=== PATIENT | male | born 1970 | race African-American/Black ===

== ENCOUNTER 2019-04-01 10:59 | Inpatient (IN) | payer MEDICAID ==
[~2019-04-01] VITALS: Ht 185.4 cm; Wt 78.0 kg
[2019-04-01] MEDS ORDERED: ONDANSETRON HCL 4MG/2ML INJ IV STA (11:38)
[2019-04-01] MEDS ORDERED: SODIUM CHLORIDE 0.9% 1,000 ML IV ONE (11:38)
[2019-04-01] MEDS ORDERED: MORPHINE SULFATE 4 MG/ML CPJ (NOT FOR IM USE) IV STA (11:38)
[2019-04-01 12:31] LABS: BASOPHILS % 0.1 % (0.0-2.0); HEMATOCRIT. 31.2 % (42.0-52.0); HEMOGLOBIN. 10.6 g/dL (14.0-18.0); MEAN CORPUSCULAR HEMOGLOBIN 28.4 pg (28.0-32.0); MEAN CORPUSCULAR VOLUME 83.7 fL (80.0-94.0); MONOCYTES % 2.1 % (2.0-8.0); NEUTROPHILS % 89.8 % (40.0-76.0); PLATELET 91 x1000/uL (130-400); RED BLOOD CELL COUNT 3.73 mill/uL (4.7-6.1)
[2019-04-01 12:38] LABS: CHLORIDE 107 mEq/L (98-107)
[2019-04-01 12:45] LABS: D-DIMER 1.97 mg/L FEU (<0.50); INR 1.1; PROTHROMBIN TIME 11.7 sec (9.6-11.0)
[2019-04-01] MEDS ORDERED: KETOROLAC 30MG/ML VIAL IV ONE (12:45)
[2019-04-01] MEDS ORDERED: MORPHINE SULFATE 4 MG/ML CPJ (NOT FOR IM USE) IV ONE (12:45)
[2019-04-01] MEDS ORDERED: SODIUM CHLORIDE 0.9% 1000ML BAG (SEPSIS BOLUS) IV ONE (13:00)
[2019-04-01] MEDS ORDERED: PIPERACILLIN/TAZ 3.375G PREMIX 50 ML IV ONE (13:00)
[2019-04-01] MEDS ORDERED: VANCOMYCIN 1 G PREMIX 200 ML IV ONE (13:00)
[2019-04-01] MEDS ORDERED: LORAZEPAM 2MG/ML CPJ IV ONE (13:30)
[2019-04-01] MEDS ORDERED: SODIUM CHLORIDE 0.9% 1,000 ML IV NR ×2 (15:03→20:45)
[2019-04-01 18:20] VITALS: BP 91/41
[2019-04-01 18:27] LABS: CLARITY URINE CLOUDY (CLEAR); COLOR URINE YELLOW (YELLOW); KETONES URINE TRACE (NEGATIVE); LEUKOCYTE ESTERASE URINE NEGATIVE (NEGATIVE); NITRITE URINE NEGATIVE (NEGATIVE); OCCULT BLOOD URINE 1+ (NEGATIVE); PROTEIN URINE 1+ (NEGATIVE)
[2019-04-01 18:36] LABS: *BARBITURATES SCREEN URINE NEGATIVE (NEGATIVE)
[2019-04-01 18:37] LABS: *AMPHETAMINES SCREEN URINE NEGATIVE (NEGATIVE); *BENZODIAZEPINES SCREEN URINE NEGATIVE (NEGATIVE); *COCAINE SCREEN URINE PRESUMTIVE POSITIVE (NEGATIVE); METHADONE URINE SCREEN NEGATIVE (NEGATIVE); OPIATES URINE SCREEN PRESUMTIVE POSITIVE (NEGATIVE); PHENCYCLIDINE URINE SCREEN NEGATIVE (NEGATIVE)
[2019-04-01 18:38] LABS: CANNABINOID URINE SCREEN PRESUMTIVE POSITIVE (NEGATIVE)
[2019-04-01] MEDS ORDERED: GUAIFENESIN 200MG/10ML SUGAR FREE UDC PO PRN (18:45)
[2019-04-01] MEDS ORDERED: ONDANSETRON HCL 4MG/2ML INJ IV PRN (18:45)
[2019-04-01] MEDS ORDERED: SODIUM CHLORIDE 0.45% 1,000 ML IV SCH (18:45)
[2019-04-01] MEDS ORDERED: PIPERACILLIN/TAZ 3.375G PREMIX 50 ML IV SCH (18:45)
[2019-04-01] MEDS ORDERED: IPRATROPIUM/ALBUTEROL 0.5-3(2.5)MG/3ML NEB INH PRN (18:45)
[2019-04-01] MEDS ORDERED: DOCUSATE SODIUM 100MG CAPSULE PO PRN (18:45)
[2019-04-01] MEDS ORDERED: ENOXAPARIN 40MG/0.4ML SYR SUBCUT SCH (18:45)
[2019-04-01] MEDS ORDERED: ACETAMINOPHEN 325MG TABLET PO PRN (18:45)
[2019-04-01] MEDS ORDERED: MAGNESIUM/ALUMINUM HYDROXIDE/SIMETHICONE 30ML UDC PO PRN (18:45)
[2019-04-01] MEDS ORDERED: CLONIDINE 0.1MG TABLET PO PRN (18:45)
[2019-04-01] MEDS ORDERED: DIPHENHYDRAMINE 50MG/ML VIAL IV PRN (18:45)
[2019-04-01] MEDS ORDERED: HYDROCODONE/ACETAMINOPHEN 10/325MG TABLET PO PRN (18:45)
[2019-04-01] MEDS ORDERED: HYDRALAZINE 20MG/ML VIAL IV PRN (18:45)
[2019-04-01 20:00] VITALS: BP 73/32
[2019-04-01] MEDS ORDERED: POTASSIUM CHLORIDE 20MEQ TABLET SR PO NR (20:00)
[2019-04-01 21:00] VITALS: BP 76/34
[2019-04-01] MEDS: PIPERACILLIN/TAZOBACTAM 3.375 G in DEXT 5% WATER 100 ML IV SCH (21:27)
[2019-04-01] MEDS: SODIUM CHLORIDE 0.9% INJ 3ML FLUSH IVF SCH (21:28)
[2019-04-01 21:30] VITALS: BP 80/36
[2019-04-01] MEDS ORDERED: SODIUM CHLORIDE 0.9% 1,000 ML IV SCH (21:45)
[2019-04-02] VITALS (75 sets, daily range): BP systolic 66–144; BP diastolic 20–95
[2019-04-02] MEDS: VANCOMYCIN 1 G PREMIX 200 ML IV SCH ×2 (00:23→12:33)
[2019-04-02] MEDS ORDERED: IBUP1TAB69 PO (00:48)
[2019-04-02 01:40] LABS: CREATINE KINASE MB FRACTION 2.2 ng/mL (0.5-3.6)
[2019-04-02] MEDS ORDERED: NOREPINEPHRINE 4 MG in DEXTROSE 5% WATER 250 ML IV PRN (05:00)
[2019-04-02] MEDS ORDERED: NOREPINEPHRINE 4MG in DEXT 5% WATER 250ML IV PRN (06:15)
[2019-04-02] MEDS ORDERED: NOREPINEPHRINE 4 MG in DEXT 5% WATER 246 ML IV PRN (06:15)
[2019-04-02] MEDS: SODIUM CHLORIDE 0.9% INJ 3ML FLUSH IVF SCH ×3 (06:45→21:54)
[2019-04-02] MEDS: PIPERACILLIN/TAZOBACTAM 3.375 G in DEXT 5% WATER 100 ML IV SCH ×2 (06:45→15:03)
[2019-04-02] MEDS ORDERED: NOREPINEPHRINE 8 MG in DEXT 5% WATER 492 ML IV PRN (08:30)
[2019-04-02 08:33] LABS: HEMATOCRIT. 34.4 % (42.0-52.0); HEMOGLOBIN. 11.4 g/dL (14.0-18.0); MEAN CORPUSCULAR HEMOGLOBIN 28.3 pg (28.0-32.0); MEAN CORPUSCULAR VOLUME 85.5 fL (80.0-94.0); MEAN PLATELET VOLUME 8.9 fl (7.4-10.4); PLATELET 78 x1000/uL (130-400); RED BLOOD CELL COUNT 4.02 mill/uL (4.7-6.1); RED CELL DISTRIBUTION WIDTH 15.5 % (11.6-14.6)
[2019-04-02 08:38] LABS: CHLORIDE 109 mEq/L (98-107)
[2019-04-02 08:47] LABS: CREATINE KINASE 455 IU/L (39-308)
[2019-04-02 08:54] LABS: CREATINE KINASE MB FRACTION 6.7 ng/mL (0.5-3.6)
[2019-04-02] MEDS ORDERED: LIDOCAINE HCL 1% 20ML VIAL (Pyxis) INJ ONE (09:16)
[2019-04-02] MEDS ORDERED: SODIUM BICARBONATE 8.4% 1 MEQ/ML 50ML SYR IV NR (11:07)
[2019-04-02] MEDS: NOREPINEPHRINE 16 MG in DEXT 5% WATER 484 ML IV PRN (11:30)
[2019-04-02 11:35] LABS: PLATELET ESTIMATE DECREASED
[2019-04-02 12:01] LABS: BG BASE EXCESS -9.3 mmol/L (-2.0-2.0); BG CARBOXYHEMOGLOBIN 0.3 % (0.5-1.5); BG DEOXYHEMOGLOBIN 3.7 % (0.0-5.0); BG FRACTION INSPIRED OXYGEN 32; BG HCO3 ACT 13.4 mmol/L (22.0-26.0); BG METHEMOGLOBIN 0.1 % (0.0-1.5); BG OXYGEN SATURATION 96.3 % (92.0-98.5); BG OXYHEMOGLOBIN 95.9 % (94.0-97.0); BG PH 7.422 (7.350-7.450); BG PO2 86.8 mmHg (75.0-100.0); BG SAMPLE SITE LEFT BRACHIAL; BG TOTAL HEMOGLOBIN 10.4 g/dL (12.0-18.0); BG VENT MODE NASAL CANNULA
[2019-04-02] MEDS: SODIUM BICARBONATE 100 MEQ in SODIUM CHLORIDE 0.45% 1,000 ML IV SCH ×2 (12:31→21:53)
[2019-04-02] MEDS: MORPHINE SULFATE 2 MG/ML CPJ (NOT FOR IM USE) IV PRN ×2 (12:34→17:43)
[2019-04-02] MEDS: LORAZEPAM 2MG/ML CPJ IV PRN (15:03)
[2019-04-02] MEDS: IPRATROPIUM/ALBUTEROL 0.5-3(2.5)MG/3ML NEB HHN SCH (21:45)
[2019-04-02] MEDS: PIPERACILLIN/TAZOBACTAM 2.25 G in DEXTROSE 5% WATER 50 ML IV SCH (21:53)
[2019-04-03] VITALS (85 sets, daily range): BP systolic 92–191; BP diastolic 26–123
[2019-04-03] MEDS: LORAZEPAM 2MG/ML CPJ IV PRN ×2 (01:31→10:11)
[2019-04-03] MEDS: IPRATROPIUM/ALBUTEROL 0.5-3(2.5)MG/3ML NEB HHN SCH ×3 (02:00→21:36)
[2019-04-03] MEDS: PHENYLEPHRINE 20 MG in DEXT 5% WATER 248 ML IV PRN ×2 (03:06→07:37)
[2019-04-03] MEDS: NOREPINEPHRINE 16 MG in DEXT 5% WATER 484 ML IV PRN ×2 (03:07→15:02)
[2019-04-03] MEDS: PIPERACILLIN/TAZOBACTAM 2.25 G in DEXTROSE 5% WATER 50 ML IV SCH (03:18)
[2019-04-03 05:18] LABS: HEMATOCRIT. 31.3 % (42.0-52.0); HEMOGLOBIN. 10.4 g/dL (14.0-18.0); MEAN CORPUSCULAR HEMOGLOBIN 27.7 pg (28.0-32.0); MEAN CORPUSCULAR VOLUME 83.6 fL (80.0-94.0); MEAN PLATELET VOLUME 9.7 fl (7.4-10.4); PLATELET 68 x1000/uL (130-400); RED BLOOD CELL COUNT 3.74 mill/uL (4.7-6.1); RED CELL DISTRIBUTION WIDTH 15.4 % (11.6-14.6)
[2019-04-03] MEDS: SODIUM CHLORIDE 0.9% INJ 3ML FLUSH IVF SCH ×3 (06:00→21:53)
[2019-04-03] MEDS: SODIUM BICARBONATE 100 MEQ in SODIUM CHLORIDE 0.45% 1,000 ML IV SCH (07:41)
[2019-04-03 07:44] LABS: BG BASE EXCESS -4.7 mmol/L (-2.0-2.0); BG CARBOXYHEMOGLOBIN 0.3 % (0.5-1.5); BG DEOXYHEMOGLOBIN 5.8 % (0.0-5.0); BG HCO3 ACT 17.1 mmol/L (22.0-26.0); BG METHEMOGLOBIN 0.1 % (0.0-1.5); BG OXYGEN SATURATION 94.2 % (92.0-98.5); BG OXYHEMOGLOBIN 93.8 % (94.0-97.0); BG PCO2 22.7 mmHg (35.0-45.0); BG PH 7.495 (7.350-7.450); BG PO2 70.2 mmHg (75.0-100.0); BG SAMPLE SITE RIGHT BRACHIAL; BG TOTAL HEMOGLOBIN 10.5 g/dL (12.0-18.0); BG VENT MODE NASAL CANNULA
[2019-04-03] MEDS: MORPHINE SULFATE 2 MG/ML CPJ (NOT FOR IM USE) IV PRN ×2 (08:35→14:57)
[2019-04-03] MEDS ORDERED: PIPERACILLIN/TAZOBACTAM 3.375 G in DEXT 5% WATER 100 ML IV SCH (09:00)
[2019-04-03 11:04] LABS: PLATELET ESTIMATE DECREASED
[2019-04-03 11:36] LABS: HEPATITIS B SURFACE ANTIGEN NEGATIVE
[2019-04-03] MEDS ORDERED: CLINDAMYCIN 600 MG in DEXTROSE 5% WATER 50 ML IV SCH (14:30)
[2019-04-03] MEDS: CLINDAMYCIN 600MG PREMIX 50 ML IV SCH (15:29)
[2019-04-03] MEDS ORDERED: VANCOMYCIN 1 G PREMIX 200 ML IV SCH (15:30)
[2019-04-03] MEDS: PIPERACILLIN/TAZOBACTAM 3.375 G in DEXT 5% WATER 100 ML IV SCH (15:52)
[2019-04-03 16:07] LABS: BG BASE EXCESS -3.1 mmol/L (-2.0-2.0); BG CARBOXYHEMOGLOBIN 0.3 % (0.5-1.5); BG DEOXYHEMOGLOBIN 6.1 % (0.0-5.0); BG FRACTION INSPIRED OXYGEN 32; BG HCO3 ACT 19.5 mmol/L (22.0-26.0); BG METHEMOGLOBIN 0.2 % (0.0-1.5); BG OXYGEN SATURATION 93.9 % (92.0-98.5); BG OXYHEMOGLOBIN 93.4 % (94.0-97.0); BG PCO2 27.1 mmHg (35.0-45.0); BG PH 7.475 (7.350-7.450); BG PO2 73.9 mmHg (75.0-100.0); BG SAMPLE SITE LEFT RADIAL; BG TOTAL HEMOGLOBIN 10.3 g/dL (12.0-18.0); BG VENT MODE NASAL CANNULA
[2019-04-03] MEDS: FAMOTIDINE 20MG/2ML VIAL IV SCH (18:54)
[2019-04-03] MEDS: BUDESONIDE 0.5MG/2ML NEB HHN SCH (21:35)
[2019-04-04] VITALS (92 sets, daily range): BP systolic 48–226; BP diastolic 25–135
[2019-04-04] MEDS: PIPERACILLIN/TAZOBACTAM 3.375 G in DEXT 5% WATER 100 ML IV SCH ×2 (00:36→08:04)
[2019-04-04] MEDS: CLINDAMYCIN 600MG PREMIX 50 ML IV SCH ×3 (00:36→16:41)
[2019-04-04] MEDS: IPRATROPIUM/ALBUTEROL 0.5-3(2.5)MG/3ML NEB HHN SCH ×3 (01:55→20:42)
[2019-04-04] MEDS: NOREPINEPHRINE 16 MG in DEXT 5% WATER 484 ML IV PRN (02:01)
[2019-04-04] MEDS: SODIUM CHLORIDE 0.9% INJ 3ML FLUSH IVF SCH ×3 (06:33→22:00)
[2019-04-04 06:41] LABS: HEMATOCRIT. 29.2 % (42.0-52.0); HEMOGLOBIN. 9.8 g/dL (14.0-18.0); MEAN CORPUSCULAR VOLUME 83.3 fL (80.0-94.0); RED BLOOD CELL COUNT 3.51 mill/uL (4.7-6.1); RED CELL DISTRIBUTION WIDTH 14.6 % (11.6-14.6)
[2019-04-04 07:06] LABS: PLATELET 49 x1000/uL (130-400)
[2019-04-04 07:07] LABS: PHOSPHORUS 1.5 mg/dL (2.5-4.9)
[2019-04-04] MEDS: SODIUM BICARBONATE 100 MEQ in SODIUM CHLORIDE 0.45% 1,000 ML IV SCH (08:15)
[2019-04-04 09:09] LABS: ABSOLUTE LYMPHOCYTES 1.6 x10E3/uL (0.7-3.1); ABSOLUTE MONOCYTES 1.6 x10E3/uL (0.1-0.9); ABSOLUTE NEUTROPHILS 33.2 x10E3/uL (1.4-7.0); BASOPHILS 0 % (Not Estab.); HEMATOLOGY COMMENT Note: (.); HEMOGLOBIN 9.9 g/dL (13.0-17.7); LYMPHOCYTES 4 % (Not Estab.); MEAN CORPUSCULAR HEMOGLOBIN 26.9 pg (26.6-33.0); MEAN CORPUSCULAR HGB CONC. 31.9 g/dL (31.5-35.7); MEAN CORPUSCULAR VOLUME 84 fL (79-97); MONOCYTES 4 % (Not Estab.); NEUTROPHILS 47 % (Not Estab.); PLATELETS 74 x10E3/uL (150-450); RBC 3.68 x10E6/uL (4.14-5.80); RED CELL DISTRIBUTION WIDTH 16.3 % (12.3-15.4); WBC 40.5 x10E3/uL (3.4-10.8)
[2019-04-04 11:28] LABS: CHLORIDE 106 mEq/L (98-107)
[2019-04-04] MEDS ORDERED: MAGNESIUM 2 G PREMIX 50 ML IV SCH (12:00)
[2019-04-04] MEDS ORDERED: CEFTRIAXONE 2 G PREMIX 50 ML IV SCH (12:15)
[2019-04-04 13:15] LABS: % CD 3 POS. LYMPHOCYTES 79.7 % (57.5-86.2); % CD 4 POS. LYMPHOCYTES 4.4 % (30.8-58.5); ABSOLUTE CD 3 1275 /uL (622-2402); ABSOLUTE CD 4 HELPER 70 /uL (359-1519); ABSOLUTE CD 8 SUPPRESSOR 1200 /uL (109-897); CD4/CD8 RATIO 0.06 (0.92-3.72)
[2019-04-04] MEDS: BUDESONIDE 0.5MG/2ML NEB HHN SCH ×2 (13:35→20:42)
[2019-04-04] MEDS: CEFTRIAXONE 2 G in DEXTROSE 5% WATER 50 ML IV SCH (13:50)
[2019-04-04] MEDS ORDERED: POTASSIUM PHOS,M-BASIC-D-BASIC 20 MMOL in DEXT 5% WATER 243.3333 ML IV SCH (14:00)
[2019-04-04 14:18] LABS: PLATELET ESTIMATE MARKEDLY DECREASED
[2019-04-04] MEDS: FAMOTIDINE 20MG/2ML VIAL IV SCH (16:43)
[2019-04-04] MEDS: MORPHINE SULFATE 4 MG/ML CPJ (NOT FOR IM USE) IV PRN (22:08)
[2019-04-05] VITALS (87 sets, daily range): BP systolic 27–152; BP diastolic 13–92
[2019-04-05] MEDS: IPRATROPIUM/ALBUTEROL 0.5-3(2.5)MG/3ML NEB HHN SCH ×4 (00:39→20:32)
[2019-04-05] MEDS: CLINDAMYCIN 600MG PREMIX 50 ML IV SCH ×3 (04:02→16:40)
[2019-04-05 05:50] LABS: HEMATOCRIT. 25.5 % (42.0-52.0); HEMOGLOBIN. 8.7 g/dL (14.0-18.0); MEAN CORPUSCULAR VOLUME 82.6 fL (80.0-94.0); RED BLOOD CELL COUNT 3.09 mill/uL (4.7-6.1); RED CELL DISTRIBUTION WIDTH 14.7 % (11.6-14.6)
[2019-04-05 06:02] LABS: CHLORIDE 105 mEq/L (98-107)
[2019-04-05 06:07] LABS: PHOSPHORUS 1.8 mg/dL (2.5-4.9)
[2019-04-05 06:24] LABS: PLATELET 45 x1000/uL (130-400)
[2019-04-05] MEDS: SODIUM CHLORIDE 0.9% INJ 3ML FLUSH IVF SCH ×3 (08:29→22:00)
[2019-04-05] MEDS: NOREPINEPHRINE 16 MG in DEXT 5% WATER 484 ML IV PRN (08:29)
[2019-04-05] MEDS ORDERED: POTASSIUM CHLORIDE INJ 40 MEQ in DEXT 5% WATER 250 ML IV NR (09:00)
[2019-04-05] MEDS: BUDESONIDE 0.5MG/2ML NEB HHN SCH ×2 (09:31→20:32)
[2019-04-05] MEDS ORDERED: POTASSIUM PHOS,M-BASIC-D-BASIC 20 MMOL in DEXT 5% WATER 243.3333 ML IV NR (13:00)
[2019-04-05 13:22] LABS: PLATELET ESTIMATE MARKEDLY DECREASED
[2019-04-05] MEDS: CEFTRIAXONE 2 G in DEXTROSE 5% WATER 50 ML IV SCH (14:59)
[2019-04-05] MEDS: SULFAMETHOXAZOLE/TRIMETHOPRIM 800/160MG TABLET PO SCH ×2 (16:40→22:00)
[2019-04-05] MEDS: FAMOTIDINE 20MG/2ML VIAL IV SCH (16:42)
[2019-04-05] MEDS: MORPHINE SULFATE 4 MG/ML CPJ (NOT FOR IM USE) IV PRN (20:19)
[2019-04-06] VITALS (14 sets, daily range): BP systolic 100–131; BP diastolic 59–86
[2019-04-06] MEDS: IPRATROPIUM/ALBUTEROL 0.5-3(2.5)MG/3ML NEB HHN SCH ×2 (01:45→07:05)
[2019-04-06] MEDS ORDERED: POTASSIUM CHLORIDE INJ 60 MEQ in DEXT 5% WATER 470 ML IV SCH (02:00)
[2019-04-06] MEDS: SODIUM CHLORIDE 0.9% INJ 3ML FLUSH IVF SCH (06:00)
[2019-04-06 06:04] LABS: HEMOGLOBIN. 8.8 g/dL (14.0-18.0); MEAN CORPUSCULAR HEMOGLOBIN 27.7 pg (28.0-32.0); MEAN PLATELET VOLUME 10.2 fl (7.4-10.4); PLATELET 58 x1000/uL (130-400); RED BLOOD CELL COUNT 3.17 mill/uL (4.7-6.1); RED CELL DISTRIBUTION WIDTH 14.5 % (11.6-14.6)
[2019-04-06 06:09] LABS: CHLORIDE 106 mEq/L (98-107)
[2019-04-06 06:14] LABS: PHOSPHORUS 2.8 mg/dL (2.5-4.9)
[2019-04-06] MEDS: BUDESONIDE 0.5MG/2ML NEB HHN SCH (07:05)
[2019-04-06] MEDS ORDERED: POTASSIUM CHLORIDE 20MEQ TABLET SR PO NR (08:15)
[2019-04-06] MEDS: SULFAMETHOXAZOLE/TRIMETHOPRIM 800/160MG TABLET PO SCH (08:23)
[2019-04-06] MEDS: CLINDAMYCIN 600MG PREMIX 50 ML IV SCH ×2 (08:23)
[2019-04-06 13:35] LABS: NUCLEATED RED BLOOD CELLS 1 /100 WBC; PLATELET ESTIMATE MARKEDLY DECREASED
== END 2019-04-06 08:45 | disposition left against medical advice (07) | DRG 890 ==
LOC: ER 10:59 → EDBD 10:59 → 6WST 13:30 → EDBEDREQTM 13:36 → ENRESERV 17:25 → 6WST 19:25 → MICUNO 04-02 02:35
PROVIDERS: ADMIT Internal Medicine; ATTEND Internal Medicine
PROC: 02HV33Z Insertion of Infusion Device into Superior Vena Cava, Percutaneous Approach (ICD-10-PCS; principal; 2019-04-02)
PROC: B548ZZA Ultrasonography of Superior Vena Cava, Guidance (ICD-10-PCS; 2019-04-02)
DX: A41.81 Sepsis due to Enterococcus (principal); B20 Human immunodeficiency virus [HIV] disease; J96.00 Acute respiratory failure, unspecified whether with hypoxia or hypercapnia; I21.4 Non-ST elevation (NSTEMI) myocardial infarction; E43 Unspecified severe protein-calorie malnutrition; N17.0 Acute kidney failure with tubular necrosis; J18.1 Lobar pneumonia, unspecified organism; L03.115 Cellulitis of right lower limb; E83.39 Other disorders of phosphorus metabolism; E87.2 Acidosis; R65.21 Severe sepsis with septic shock; E87.6 Hypokalemia; G62.9 Polyneuropathy, unspecified; N18.9 Chronic kidney disease, unspecified; C46.9 Kaposi's sarcoma, unspecified; E87.1 Hypo-osmolality and hyponatremia; F14.10 Cocaine abuse, uncomplicated; I73.9 Peripheral vascular disease, unspecified; Z92.3 Personal history of irradiation; M54.30 Sciatica, unspecified side; E46 Unspecified protein-calorie malnutrition; F11.10 Opioid abuse, uncomplicated; F12.10 Cannabis abuse, uncomplicated; Z71.6 Tobacco abuse counseling; Z87.311 Personal history of (healed) other pathological fracture; Z68.22 Body mass index [BMI] 22.0-22.9, adult
CPT/HCPCS: 36415; 36600; 71045; 71250; 73630; 74018; 76770; 76937; 80048; 80202; 80305; 81003; 82375; 82533; 82550; 82553; 82805; 83605; 83615; 83735; 83880; 84100; 84132; 84443; 84484; 85379; 86359; 86360; 86803; 87077; 87177; 87186; 87209; 87340; 87493; 93306; 93923; 93970; 94640; 99285; C1725; J0696; J1885; J2060; J2270; J2370; J2405; J2543; J3370; J3475; J3480; J3490; J7030; J7060; J7620; J7626

== ENCOUNTER 2022-07-28 17:52 | Emergency (ER) | payer MEDICAID ==
[~2022-07-28] VITALS: Ht 175.3 cm; Wt 78.0 kg
[~2022-07-28 17:52] MED LIST: IBUP1TAB69 PO
[2022-07-28] MEDS ORDERED: AMIT25TA9 PO (18:38)
[2022-07-28] MEDS ORDERED: GABA-532 PO (18:39)
[2022-07-28] MEDS ORDERED: DULO60CA64 PO (18:39)
[2022-07-28] MEDS ORDERED: DAPS100T PO (18:39)
[2022-07-28] MEDS ORDERED: BICT1TAB PO (18:40)
[2022-07-28] MEDS ORDERED: IBUP-2030 PO (18:41)
[2022-07-28] MEDS ORDERED: DEXA4TAB PO (18:44)
[2022-07-28 19:03] LABS: BASOPHILS % 0.7 % (0.0-2.0); EOSINOPHILS % 0.2 % (0.0-5.0); HEMATOCRIT. 28.9 % (42.0-52.0); HEMOGLOBIN. 9.3 g/dL (14.0-18.0); LYMPHOCYTES % 22.1 % (20.0-50.0); MEAN CORPUSCULAR HEMOGLOBIN 25.7 pg (28.0-32.0); MEAN CORPUSCULAR VOLUME 80.3 fL (80.0-94.0); MEAN PLATELET VOLUME 7.1 fl (7.4-10.4); MONOCYTES % 11.1 % (2.0-8.0); NEUTROPHILS % 65.9 % (40.0-76.0); PLATELET 350 x1000/uL (130-400); RED CELL DISTRIBUTION WIDTH 17.8 % (11.6-14.6)
[2022-07-28 19:08] LABS: CHLORIDE 105 mEq/L (98-107)
[2022-07-28 19:09] LABS: INR 1.1; PROTHROMBIN TIME 11.7 sec (9.6-11.0)
[2022-07-28 19:19] LABS: ETHANOL BLOOD 43 mg/dL
[2022-07-28 19:45] VITALS: BP 152/92
[2022-07-28] MEDS ORDERED: IOHEXOL-350 100 ML BOTTLE ONE (20:46)
== END 2022-07-28 20:28 | disposition left against medical advice (07) ==
LOC: ER 17:55
DX: I63.9 Cerebral infarction, unspecified (principal); B20 Human immunodeficiency virus [HIV] disease; C46.9 Kaposi's sarcoma, unspecified; D69.6 Thrombocytopenia, unspecified; F10.129 Alcohol abuse with intoxication, unspecified; Y90.2 Blood alcohol level of 40-59 mg/100 ml; Z92.21 Personal history of antineoplastic chemotherapy
CPT/HCPCS: 36415; 70450; 70496; 70498; 80053; 80320; 83690; 83880; 84484; 85025; 85610; 93005; 99291; Q9967; G0480

== ENCOUNTER 2023-05-31 14:35 | Inpatient (IN) | payer MEDICAID ==
[~2023-05-31] VITALS: Ht 182.9 cm; Wt 74.8 kg
[~2023-05-31 14:35] MED LIST changes: +AMIT50TA4 PO; +BICT1TAB PO; +DAPS100T PO; +GABA-532 PO; -IBUP1TAB69 PO; +NALO4SPR3 PO; +OXYC1TAB12 PO
[2023-05-31 15:00] VITALS: BP 125/83; PULSE 86; RESP 18; TEMP 98.3
[2023-05-31] MEDS ORDERED: ACETAMINOPHEN 325MG TABLET PO PRN ×2 (15:00)
[2023-05-31] MEDS ORDERED: CLONIDINE 0.1MG TABLET PO PRN (15:00)
[2023-05-31] MEDS ORDERED: GUAIFENESIN 200MG/10ML SUGAR FREE UDC PO PRN (15:00)
[2023-05-31] MEDS ORDERED: IPRATROPIUM/ALBUTEROL 0.5-3(2.5)MG/3ML NEB HHN PRN (15:00)
[2023-05-31] MEDS ORDERED: MAGNESIUM/ALUMINUM HYDROXIDE/SIMETHICONE 30ML UDC PO PRN (15:00)
[2023-05-31] MEDS ORDERED: DOCUSATE SODIUM 100MG CAPSULE PO PRN (15:00)
[2023-05-31] MEDS ORDERED: ONDANSETRON HCL 4MG/2ML INJ IV PRN (15:00)
[2023-05-31] MEDS ORDERED: *PATIENT'S OWN MEDICATION STORAGE XX SCH (15:30)
[2023-05-31] MEDS: FERROUS SULFATE 325MG TABLET PO SCH (17:00)
[2023-05-31 20:00] VITALS: BP 141/92; PULSE 78; RESP 18; TEMP 97.9
[2023-05-31] MEDS: KETOROLAC 30MG/ML VIAL IV PRN (21:05)
[2023-06-01] MEDS: KETOROLAC 30MG/ML VIAL IV PRN ×2 (02:50→09:52)
[2023-06-01 07:44] LABS: BASOPHILS % 0.3 % (0.0-2.0); EOSINOPHILS % 2.5 % (0.0-5.0); HEMATOCRIT. 25.8 % (42.0-52.0); HEMOGLOBIN. 8.4 g/dL (14.0-18.0); LYMPHOCYTES % 37.1 % (20.0-50.0); MEAN CORPUSCULAR HEMOGLOBIN 27.3 pg (28.0-32.0); MEAN CORPUSCULAR HGB CONC 32.4 g/dL (31.0-37.0); MEAN CORPUSCULAR VOLUME 84.3 fL (80.0-94.0); MEAN PLATELET VOLUME 7.3 fl (7.4-10.4); MONOCYTES % 11.1 % (2.0-8.0); PLATELET 429 x1000/uL (130-400); RED BLOOD CELL COUNT 3.06 mill/uL (4.7-6.1); RED CELL DISTRIBUTION WIDTH 18.6 % (11.6-14.6); WHITE BLOOD COUNT 4.8 x1000/uL (4.5-11.0)
[2023-06-01 07:48] LABS: CHLORIDE 111 mEq/L (98-107); INDEX HEMOLYSI 1 (1-3); INDEX ICTERIC 1 (1-4); INDEX LIPEMIC 1 (1-3); SODIUM 139 mEq/L (136-145)
[2023-06-01 07:55] LABS: ALANINE AMINOTRANSFERASE 14 IU/L (13-61); ALBUMIN 2.9 g/dL (3.4-5.0); ASPARTATE AMINOTRANSFERASE 13 IU/L (15-37); BILIRUBIN TOTAL 0.2 mg/dL (0.1-1.0); CALCIUM 8.1 mg/dL (8.5-10.1); CARBON DIOXIDE 24 mEq/L (21-32); GLUCOSE 80 mg/dL (70-105); PREALBUMIN 17.7 mg/dL (20.0-40.0); PROTEIN TOTAL 7.6 g/dL (6.0-8.3); UREA NITROGEN BLOOD 15 mg/dL (7-21)
[2023-06-01 08:00] VITALS: BP 106/61; PULSE 70; RESP 16; TEMP 97.9
[2023-06-01] MEDS: BIKTARVY PO SCH (09:00)
[2023-06-01] MEDS: DAPSONE 100MG TABLET PO SCH (09:49)
[2023-06-01] MEDS: FOLIC ACID 1MG TABLET PO SCH (09:49)
[2023-06-01] MEDS: MULTIVITAMINS,THER W-MINERALS TABLET PO SCH (09:49)
[2023-06-01] MEDS: FERROUS SULFATE 325MG TABLET PO SCH ×3 (09:49→17:10)
[2023-06-01] MEDS: ASCORBIC ACID 500 MG TABLET PO SCH (09:50)
[2023-06-01] MEDS: SULFAMETHOXAZOLE/TRIMETHOPRIM 800/160MG TABLET PO SCH (09:50)
[2023-06-01] MEDS: ENOXAPARIN 40MG/0.4ML SYR SUBCUT SCH (09:51)
[2023-06-01] MEDS: CYANOCOBALAMIN 1000MCG/ML VIAL IM SCH (09:51)
[2023-06-01 20:00] VITALS: BP_SYST 128; BP_SYST 129; BP_DIAS 76; BP_DIAS 84; PULSE 78; PULSE 85; RESP 16; TEMP 97.4; TEMP 97.9
[2023-06-01] MEDS ORDERED: KETOROLAC 30MG/ML VIAL IV PRN (20:00)
[2023-06-02] MEDS: LIDOCAINE 5% PATCH TOP SCH (10:00)
[2023-06-02] MEDS: CYANOCOBALAMIN 1000MCG/ML VIAL IM SCH (11:11)
[2023-06-02] MEDS: DAPSONE 100MG TABLET PO SCH (11:11)
[2023-06-02] MEDS: ASCORBIC ACID 500 MG TABLET PO SCH (11:12)
[2023-06-02] MEDS: SULFAMETHOXAZOLE/TRIMETHOPRIM 800/160MG TABLET PO SCH (11:12)
[2023-06-02] MEDS: MULTIVITAMINS,THER W-MINERALS TABLET PO SCH (11:12)
[2023-06-02] MEDS: FERROUS SULFATE 325MG TABLET PO SCH ×3 (11:12→18:09)
[2023-06-02] MEDS: FOLIC ACID 1MG TABLET PO SCH (11:12)
[2023-06-02] MEDS: ENOXAPARIN 40MG/0.4ML SYR SUBCUT SCH (11:13)
[2023-06-02] MEDS: BIKTARVY PO SCH (11:16)
[2023-06-02] MEDS ORDERED: NALOXONE HCL 0.4MG/ML VIAL IV PRN (11:30)
[2023-06-02 20:00] VITALS: BP 128/76; PULSE 78; RESP 18; TEMP 97.4
[2023-06-03 08:00] VITALS: BP 107/66; PULSE 91; RESP 18; TEMP 98
[2023-06-03] MEDS: MULTIVITAMINS,THER W-MINERALS TABLET PO SCH (08:47)
[2023-06-03] MEDS: FOLIC ACID 1MG TABLET PO SCH (08:47)
[2023-06-03] MEDS: ASCORBIC ACID 500 MG TABLET PO SCH (08:47)
[2023-06-03] MEDS: CYANOCOBALAMIN 1000MCG/ML VIAL IM SCH (08:47)
[2023-06-03] MEDS: FERROUS SULFATE 325MG TABLET PO SCH ×3 (08:47→18:29)
[2023-06-03] MEDS: DAPSONE 100MG TABLET PO SCH (08:47)
[2023-06-03] MEDS: SULFAMETHOXAZOLE/TRIMETHOPRIM 800/160MG TABLET PO SCH (08:47)
[2023-06-03] MEDS: ENOXAPARIN 40MG/0.4ML SYR SUBCUT SCH (08:48)
[2023-06-03] MEDS: LIDOCAINE 5% PATCH TOP SCH (08:48)
[2023-06-03] MEDS: BIKTARVY PO SCH (08:49)
[2023-06-03] MEDS: HYDROCODONE/ACETAMINOPHEN 10/325MG TABLET PO PRN (14:15)
[2023-06-03 20:00] VITALS: BP 123/83; PULSE 100; RESP 18; TEMP 97.5
[2023-06-04 08:08] LABS: BASOPHILS % 0.2 % (0.0-2.0); HEMATOCRIT. 27.6 % (42.0-52.0); HEMOGLOBIN. 8.8 g/dL (14.0-18.0); LYMPHOCYTES % 27.3 % (20.0-50.0); MEAN CORPUSCULAR HEMOGLOBIN 27.1 pg (28.0-32.0); MEAN CORPUSCULAR VOLUME 84.7 fL (80.0-94.0); MEAN PLATELET VOLUME 7.7 fl (7.4-10.4); MONOCYTES % 11.1 % (2.0-8.0); NEUTROPHILS % 59.4 % (40.0-76.0); PLATELET 413 x1000/uL (130-400); RED BLOOD CELL COUNT 3.26 mill/uL (4.7-6.1); RED CELL DISTRIBUTION WIDTH 18.3 % (11.6-14.6); WHITE BLOOD COUNT 5.9 x1000/uL (4.5-11.0)
[2023-06-04 08:10] VITALS: BP 100/63; PULSE 78; RESP 19; TEMP 96.5
[2023-06-04 08:40] LABS: CHLORIDE 109 mEq/L (98-107); INDEX HEMOLYSI 1 (1-3); INDEX ICTERIC 1 (1-4); INDEX LIPEMIC 1 (1-3); POTASSIUM 4.3 mEq/L (3.5-5.1); SODIUM 138 mEq/L (136-145)
[2023-06-04 08:47] LABS: CALCIUM 8.3 mg/dL (8.5-10.1); CARBON DIOXIDE 23 mEq/L (21-32); CREATININE 0.8 mg/dL (0.6-1.3); GLUCOSE 91 mg/dL (70-105); UREA NITROGEN BLOOD 14 mg/dL (7-21)
[2023-06-04] MEDS: ENOXAPARIN 40MG/0.4ML SYR SUBCUT SCH (09:02)
[2023-06-04] MEDS: BIKTARVY PO SCH (09:03)
[2023-06-04] MEDS: CYANOCOBALAMIN 1000MCG/ML VIAL IM SCH (09:04)
[2023-06-04] MEDS: DAPSONE 100MG TABLET PO SCH (09:04)
[2023-06-04] MEDS: ASCORBIC ACID 500 MG TABLET PO SCH (09:04)
[2023-06-04] MEDS: MULTIVITAMINS,THER W-MINERALS TABLET PO SCH (09:04)
[2023-06-04] MEDS: LIDOCAINE 5% PATCH TOP SCH (09:04)
[2023-06-04] MEDS: FOLIC ACID 1MG TABLET PO SCH (09:04)
[2023-06-04] MEDS: SULFAMETHOXAZOLE/TRIMETHOPRIM 800/160MG TABLET PO SCH (09:04)
[2023-06-04] MEDS: FERROUS SULFATE 325MG TABLET PO SCH ×3 (09:04→17:20)
[2023-06-04] MEDS: HYDROCODONE/ACETAMINOPHEN 10/325MG TABLET PO PRN ×2 (13:45→23:12)
[2023-06-04 20:00] VITALS: BP 112/73; PULSE 76; RESP 18; TEMP 97.9
[2023-06-05 08:00] VITALS: BP 96/58; PULSE 83; RESP 20; TEMP 97.3
[2023-06-05] MEDS: LIDOCAINE 5% PATCH TOP SCH (10:05)
[2023-06-05] MEDS: DAPSONE 100MG TABLET PO SCH (10:08)
[2023-06-05] MEDS: CYANOCOBALAMIN 1000MCG/ML VIAL IM SCH (10:08)
[2023-06-05] MEDS: MULTIVITAMINS,THER W-MINERALS TABLET PO SCH (10:08)
[2023-06-05] MEDS: FERROUS SULFATE 325MG TABLET PO SCH ×3 (10:09→16:07)
[2023-06-05] MEDS: FOLIC ACID 1MG TABLET PO SCH (10:09)
[2023-06-05] MEDS: SULFAMETHOXAZOLE/TRIMETHOPRIM 800/160MG TABLET PO SCH (10:09)
[2023-06-05] MEDS: ASCORBIC ACID 500 MG TABLET PO SCH (10:09)
[2023-06-05] MEDS: ENOXAPARIN 40MG/0.4ML SYR SUBCUT SCH (10:11)
[2023-06-05] MEDS: BIKTARVY PO SCH (10:11)
[2023-06-05] MEDS: HYDROCODONE/ACETAMINOPHEN 10/325MG TABLET PO PRN ×2 (10:22→14:24)
[2023-06-05] MEDS: ERGOCALCIFEROL 50000UNITS CAPSULE PO SCH (12:47)
[2023-06-05 20:00] VITALS: BP 116/73; PULSE 74; RESP 18; TEMP 96.4
[2023-06-06 08:00] VITALS: BP 121/84; PULSE 75; RESP 20; TEMP 96.9
[2023-06-06] MEDS: BIKTARVY PO SCH (09:00)
[2023-06-06] MEDS: LIDOCAINE 5% PATCH TOP SCH (09:00)
[2023-06-06] MEDS: SULFAMETHOXAZOLE/TRIMETHOPRIM 800/160MG TABLET PO SCH (09:15)
[2023-06-06] MEDS: MULTIVITAMINS,THER W-MINERALS TABLET PO SCH (09:15)
[2023-06-06] MEDS: FERROUS SULFATE 325MG TABLET PO SCH ×3 (09:15→16:49)
[2023-06-06] MEDS: ASCORBIC ACID 500 MG TABLET PO SCH (09:15)
[2023-06-06] MEDS: FOLIC ACID 1MG TABLET PO SCH (09:15)
[2023-06-06] MEDS: DAPSONE 100MG TABLET PO SCH (09:15)
[2023-06-06] MEDS: ENOXAPARIN 40MG/0.4ML SYR SUBCUT SCH (09:17)
[2023-06-06] MEDS: HYDROCODONE/ACETAMINOPHEN 10/325MG TABLET PO PRN ×3 (09:18→23:30)
[2023-06-06] MEDS ORDERED: ONDANSETRON 4MG ODT PO PRN (13:17)
[2023-06-06 20:00] VITALS: BP 116/78; PULSE 66; RESP 17; TEMP 97
[2023-06-07 08:00] VITALS: BP 103/72; PULSE 73; RESP 18; TEMP 97.3
[2023-06-07] MEDS: DAPSONE 100MG TABLET PO SCH (09:10)
[2023-06-07] MEDS: ENOXAPARIN 40MG/0.4ML SYR SUBCUT SCH (09:10)
[2023-06-07] MEDS: MULTIVITAMINS,THER W-MINERALS TABLET PO SCH (09:11)
[2023-06-07] MEDS: BIKTARVY PO SCH (09:11)
[2023-06-07] MEDS: FOLIC ACID 1MG TABLET PO SCH (09:11)
[2023-06-07] MEDS: FERROUS SULFATE 325MG TABLET PO SCH ×3 (09:11→17:06)
[2023-06-07] MEDS: SULFAMETHOXAZOLE/TRIMETHOPRIM 800/160MG TABLET PO SCH (09:11)
[2023-06-07] MEDS: ASCORBIC ACID 500 MG TABLET PO SCH (09:11)
[2023-06-07] MEDS: LIDOCAINE 5% PATCH TOP SCH (09:17)
[2023-06-07] MEDS: HYDROCODONE/ACETAMINOPHEN 10/325MG TABLET PO PRN ×2 (14:05→22:33)
[2023-06-07 20:00] VITALS: BP 129/95; PULSE 87; RESP 18; TEMP 98.6
[2023-06-08 07:31] LABS: BASOPHILS % 1.2 % (0.0-2.0); EOSINOPHILS % 2.2 % (0.0-5.0); HEMATOCRIT. 27.7 % (42.0-52.0); HEMOGLOBIN. 9.1 g/dL (14.0-18.0); LYMPHOCYTES % 31.2 % (20.0-50.0); MEAN CORPUSCULAR HEMOGLOBIN 27.6 pg (28.0-32.0); MEAN CORPUSCULAR VOLUME 83.6 fL (80.0-94.0); MONOCYTES % 11.1 % (2.0-8.0); NEUTROPHILS % 54.3 % (40.0-76.0); PLATELET 384 x1000/uL (130-400); RED BLOOD CELL COUNT 3.31 mill/uL (4.7-6.1); RED CELL DISTRIBUTION WIDTH 18.2 % (11.6-14.6); WHITE BLOOD COUNT 5.5 x1000/uL (4.5-11.0)
[2023-06-08 08:15] LABS: CALCIUM 8.5 mg/dL (8.5-10.1); CARBON DIOXIDE 26 mEq/L (21-32); CHLORIDE 106 mEq/L (98-107); GLUCOSE 85 mg/dL (70-105); INDEX HEMOLYSI 1 (1-3); INDEX ICTERIC 1 (1-4); INDEX LIPEMIC 1 (1-3); POTASSIUM 4.1 mEq/L (3.5-5.1); SODIUM 137 mEq/L (136-145); UREA NITROGEN BLOOD 12 mg/dL (7-21)
[2023-06-08 08:18] LABS: CREATININE 0.8 mg/dL (0.6-1.3)
[2023-06-08] MEDS: LIDOCAINE 5% PATCH TOP SCH (09:00)
[2023-06-08] MEDS: SULFAMETHOXAZOLE/TRIMETHOPRIM 800/160MG TABLET PO SCH (09:58)
[2023-06-08] MEDS: FOLIC ACID 1MG TABLET PO SCH (09:58)
[2023-06-08] MEDS: DAPSONE 100MG TABLET PO SCH (09:58)
[2023-06-08] MEDS: FERROUS SULFATE 325MG TABLET PO SCH ×3 (09:59→16:31)
[2023-06-08] MEDS: MULTIVITAMINS,THER W-MINERALS TABLET PO SCH (09:59)
[2023-06-08] MEDS: ASCORBIC ACID 500 MG TABLET PO SCH (09:59)
[2023-06-08] MEDS: ENOXAPARIN 40MG/0.4ML SYR SUBCUT SCH (10:00)
[2023-06-08] MEDS: BIKTARVY PO SCH (10:00)
[2023-06-08] MEDS: HYDROCODONE/ACETAMINOPHEN 10/325MG TABLET PO PRN ×2 (13:35→21:36)
[2023-06-08 20:00] VITALS: BP 102/64; PULSE 102; RESP 17; TEMP 98.6
[2023-06-09] MEDS: ASCORBIC ACID 500 MG TABLET PO SCH (10:47)
[2023-06-09] MEDS: DAPSONE 100MG TABLET PO SCH (10:48)
[2023-06-09] MEDS: MULTIVITAMINS,THER W-MINERALS TABLET PO SCH (10:48)
[2023-06-09] MEDS: FOLIC ACID 1MG TABLET PO SCH (10:48)
[2023-06-09] MEDS: HYDROCODONE/ACETAMINOPHEN 10/325MG TABLET PO PRN ×3 (10:48→22:58)
[2023-06-09] MEDS: SULFAMETHOXAZOLE/TRIMETHOPRIM 800/160MG TABLET PO SCH (10:48)
[2023-06-09] MEDS: FERROUS SULFATE 325MG TABLET PO SCH ×3 (10:48→17:41)
[2023-06-09] MEDS: BIKTARVY PO SCH (10:49)
[2023-06-09] MEDS: ERGOCALCIFEROL 50000UNITS CAPSULE PO SCH (11:00)
[2023-06-09] MEDS: ENOXAPARIN 40MG/0.4ML SYR SUBCUT SCH (11:01)
[2023-06-09] MEDS: LIDOCAINE 5% PATCH TOP SCH ×2 (11:02→11:55)
[2023-06-09 20:00] VITALS: BP 112/80; PULSE 103; RESP 17; TEMP 98.1
[2023-06-10] MEDS: SULFAMETHOXAZOLE/TRIMETHOPRIM 800/160MG TABLET PO SCH (09:00)
[2023-06-10] MEDS: ASCORBIC ACID 500 MG TABLET PO SCH (09:52)
[2023-06-10] MEDS: FERROUS SULFATE 325MG TABLET PO SCH ×3 (09:52→16:17)
[2023-06-10] MEDS: MULTIVITAMINS,THER W-MINERALS TABLET PO SCH (09:52)
[2023-06-10] MEDS: BIKTARVY PO SCH (09:52)
[2023-06-10] MEDS: FOLIC ACID 1MG TABLET PO SCH (09:52)
[2023-06-10] MEDS: DAPSONE 100MG TABLET PO SCH (09:53)
[2023-06-10] MEDS: ENOXAPARIN 40MG/0.4ML SYR SUBCUT SCH (09:53)
[2023-06-10] MEDS: LIDOCAINE 5% PATCH TOP SCH (10:00)
[2023-06-10] MEDS: HYDROCODONE/ACETAMINOPHEN 10/325MG TABLET PO PRN ×2 (13:23→23:12)
[2023-06-10 20:00] VITALS: BP 107/65; PULSE 73; RESP 17; TEMP 97
[2023-06-11 08:00] VITALS: BP 117/68; PULSE 70; RESP 18; TEMP 97.5
[2023-06-11] MEDS: ENOXAPARIN 40MG/0.4ML SYR SUBCUT SCH (08:47)
[2023-06-11] MEDS: ASCORBIC ACID 500 MG TABLET PO SCH (08:47)
[2023-06-11] MEDS: MULTIVITAMINS,THER W-MINERALS TABLET PO SCH (08:48)
[2023-06-11] MEDS: FERROUS SULFATE 325MG TABLET PO SCH ×3 (08:48→19:35)
[2023-06-11] MEDS: DAPSONE 100MG TABLET PO SCH (08:48)
[2023-06-11] MEDS: SULFAMETHOXAZOLE/TRIMETHOPRIM 800/160MG TABLET PO SCH (08:48)
[2023-06-11] MEDS: HYDROCODONE/ACETAMINOPHEN 10/325MG TABLET PO PRN ×3 (08:48→22:04)
[2023-06-11] MEDS: FOLIC ACID 1MG TABLET PO SCH (08:48)
[2023-06-11] MEDS: BIKTARVY PO SCH (08:54)
[2023-06-11] MEDS: LIDOCAINE 5% PATCH TOP SCH (09:57)
[2023-06-11] MEDS ORDERED: NALOXONE HCL 0.4MG/ML VIAL IV PRN (14:00)
[2023-06-11 20:00] VITALS: BP 128/86; PULSE 92; RESP 18; TEMP 96.6
[2023-06-12] MEDS: HYDROCODONE/ACETAMINOPHEN 10/325MG TABLET PO PRN ×3 (05:09→22:15)
[2023-06-12] MEDS: ENOXAPARIN 40MG/0.4ML SYR SUBCUT SCH (08:49)
[2023-06-12] MEDS: LIDOCAINE 5% PATCH TOP SCH (08:49)
[2023-06-12] MEDS: ASCORBIC ACID 500 MG TABLET PO SCH (08:50)
[2023-06-12] MEDS: FERROUS SULFATE 325MG TABLET PO SCH ×3 (08:50→17:02)
[2023-06-12] MEDS: SULFAMETHOXAZOLE/TRIMETHOPRIM 800/160MG TABLET PO SCH (08:50)
[2023-06-12] MEDS: DAPSONE 100MG TABLET PO SCH (08:50)
[2023-06-12] MEDS: FOLIC ACID 1MG TABLET PO SCH (08:50)
[2023-06-12] MEDS: MULTIVITAMINS,THER W-MINERALS TABLET PO SCH (08:50)
[2023-06-12] MEDS: ERGOCALCIFEROL 50000UNITS CAPSULE PO SCH (08:50)
[2023-06-12] MEDS: BIKTARVY PO SCH (09:00)
[2023-06-12 20:00] VITALS: BP 110/70; PULSE 89; RESP 16; TEMP 97.3
[2023-06-13 08:00] VITALS: BP 117/78; PULSE 94; RESP 18; TEMP 98.2
[2023-06-13] MEDS: DAPSONE 100MG TABLET PO SCH (09:20)
[2023-06-13] MEDS: FERROUS SULFATE 325MG TABLET PO SCH ×3 (09:20→16:39)
[2023-06-13] MEDS: MULTIVITAMINS,THER W-MINERALS TABLET PO SCH (09:20)
[2023-06-13] MEDS: FOLIC ACID 1MG TABLET PO SCH (09:20)
[2023-06-13] MEDS: ENOXAPARIN 40MG/0.4ML SYR SUBCUT SCH (09:20)
[2023-06-13] MEDS: ASCORBIC ACID 500 MG TABLET PO SCH (09:20)
[2023-06-13] MEDS: SULFAMETHOXAZOLE/TRIMETHOPRIM 800/160MG TABLET PO SCH (09:20)
[2023-06-13] MEDS: LIDOCAINE 5% PATCH TOP SCH (09:21)
[2023-06-13] MEDS: HYDROCODONE/ACETAMINOPHEN 10/325MG TABLET PO PRN ×3 (09:27→21:38)
[2023-06-13] MEDS: BIKTARVY PO SCH (09:27)
[2023-06-13 20:00] VITALS: BP 110/74; PULSE 106; RESP 17; TEMP 97.9
[2023-06-14] MEDS: HYDROCODONE/ACETAMINOPHEN 10/325MG TABLET PO PRN ×2 (04:20→08:54)
[2023-06-14 08:20] VITALS: BP 112/77; PULSE 105; RESP 20; TEMP 97.7
[2023-06-14] MEDS: ENOXAPARIN 40MG/0.4ML SYR SUBCUT SCH (08:22)
[2023-06-14] MEDS: FOLIC ACID 1MG TABLET PO SCH (08:23)
[2023-06-14] MEDS: ASCORBIC ACID 500 MG TABLET PO SCH (08:23)
[2023-06-14] MEDS: DAPSONE 100MG TABLET PO SCH (08:23)
[2023-06-14] MEDS: MULTIVITAMINS,THER W-MINERALS TABLET PO SCH (08:23)
[2023-06-14] MEDS: BIKTARVY PO SCH (08:23)
[2023-06-14] MEDS: SULFAMETHOXAZOLE/TRIMETHOPRIM 800/160MG TABLET PO SCH (08:23)
[2023-06-14] MEDS: FERROUS SULFATE 325MG TABLET PO SCH (08:23)
[2023-06-14] MEDS: LIDOCAINE 5% PATCH TOP SCH (08:24)
[2023-06-14 08:54] VITALS: RESP 20
[2023-06-14] MEDS ORDERED: SULF1TAB44 PO (10:17)
[2023-06-14] MEDS ORDERED: FOLI-43 PO (10:17)
[2023-06-14] MEDS ORDERED: LIDO700A30 TOP (10:17)
[2023-06-14 10:21] VITALS: BP 112/77; PULSE 105; TEMP 97.7; O2SAT 98
== END 2023-06-14 13:15 | disposition home health service (06) | DRG 340 ==
PROVIDERS: ADMIT Physical Medicine & Rehabilitation Spinal Cord Injury Medicine; ATTEND Internal Medicine
DX: S72.091A Other fracture of head and neck of right femur, initial encounter for closed fracture (principal); B20 Human immunodeficiency virus [HIV] disease; C46.9 Kaposi's sarcoma, unspecified; E44.0 Moderate protein-calorie malnutrition; G82.20 Paraplegia, unspecified; D63.8 Anemia in other chronic diseases classified elsewhere; R53.81 Other malaise; D75.839 Thrombocytosis, unspecified; E53.8 Deficiency of other specified B group vitamins; E61.1 Iron deficiency; F41.9 Anxiety disorder, unspecified; I50.22 Chronic systolic (congestive) heart failure; D64.89 Other specified anemias; W18.39XA Other fall on same level, initial encounter; Y93.89 Activity, other specified; Y92.89 Other specified places as the place of occurrence of the external cause; Y99.8 Other external cause status; F19.10 Other psychoactive substance abuse, uncomplicated; Z68.22 Body mass index [BMI] 22.0-22.9, adult; E55.9 Vitamin D deficiency, unspecified; K59.00 Constipation, unspecified; Z53.29 Procedure and treatment not carried out because of patient's decision for other reasons; Z79.899 Other long term (current) drug therapy; Z80.7 Family history of other malignant neoplasms of lymphoid, hematopoietic and related tissues; Z82.49 Family history of ischemic heart disease and other diseases of the circulatory system; Z85.89 Personal history of malignant neoplasm of other organs and systems; Z91.81 History of falling; R26.9 Unspecified abnormalities of gait and mobility
CPT/HCPCS: 36415; 72192; 73502; 73700; 80048; 80053; 82306; 84134; 84145; 85025; 93970; 97110; 97112; 97116; 97161; 97165; 97530; 97535; J1650; J1885; J3420